=== PATIENT | female | born 1975 | race Caucasian/White ===

== ENCOUNTER 2016-09-16 21:31 | Emergency (ER) | payer SELFPAY ==
[~2016-09-16 21:31] MED LIST: DEPAKOTE PO; TOPAMAX PO; VYVANSE20 MG PO
[2016-09-16 21:34] LABS: INFLUENZA A NEG (NEG); INFLUENZA B NEG (NEG)
== END 2016-09-16 22:13 | disposition home or self-care (01) ==
LOC: SED 21:31
PROVIDERS: Emergency Medicine
DX: J02.9 Acute pharyngitis, unspecified (principal); F17.200 Nicotine dependence, unspecified, uncomplicated; Z88.0 Allergy status to penicillin; Z88.2 Allergy status to sulfonamides; Z79.899 Other long term (current) drug therapy
CPT/HCPCS: 87651; 87804; 99282

== ENCOUNTER 2016-09-23 22:36 | Emergency (ER) | payer SELFPAY ==
--- NOTE | ~2016-09-23 | CR63 ---
[facility] A Service of [facility] & [facility] RADIOLOGY TEXT RESULTS PATIENT: EMIL THOMAS LOCATION: [facility] : 79 UNIT #: [id number] AGE: [address]: SWAPNA GOULD SEX: F ORDER DR: [id number] [facility] [address] [place], [place] [address] [id number] E MR#: [id number] Acc #: [id number] NAME: EMIL THOMAS : 1975 SEX: F STUDY DATE/TIME: 09/23/2016 23:11 UNIT: CFMI ROOM: STUDY DESCRIPTION: CR Chest 2 View Attending Physician: Swapna Gould Aprn Ordering Physician: Ed Boy Turpin M.D. Primary Care Physician: Eduardo Castano M.D. MEDICAL IMAGING REPORT This report is preliminary unless electronic signature is present EXAM PA lateral chest Date: 09/23/2016 HISTORY Shortness of breath and cough for [address] chest 02/27/2016. No prior chest radiograph for comparison at this institution. FINDINGS No acute airspace disease is seen. Calcified granulomatous changes thought to be present in the right infrahilar region. No pleural effusion or pneumothorax or acute osseous abnormalities are identified. IMPRESSION Benign calcified granulomatous changes. No acute chest findings. Dictated by... Jania Cotton M.D. THIS IS AN ELECTRONICALLY VERIFIED REPORT Jania Cotton M.D. at 09/28/2016 8:38 AM CINDIH/vicki TD: 09/24/2016 09:44 JOB #: [id number] MEDICAL IMAGING REPORT Page 1 of 1 COPY
== END 2016-09-23 23:46 | disposition home or self-care (01) ==
LOC: CFTX 22:36
DX: J40 Bronchitis, not specified as acute or chronic (principal); F17.200 Nicotine dependence, unspecified, uncomplicated; Z88.0 Allergy status to penicillin; Z91.040 Latex allergy status
CPT/HCPCS: 71020; 99283

== ENCOUNTER 2016-11-17 01:49 | Emergency (ER) | payer BC ==
--- NOTE | ~2016-11-17 | CT4 ---
[facility] A Service of [facility] RADIOLOGY TEXT RESULTS PATIENT: EMIL THOMAS LOCATION: [facility] : 79 UNIT #: [id number] AGE: [address]: Matt Levy MD SEX: F ORDER DR: [id number] [id number] [place], [place] [address] [id number] E MR#: [id number] Acc #: [id number] NAME: EMIL THOMAS : 1975 SEX: F STUDY DATE/TIME: 11/17/2016 3:12 UNIT: TETE ROOM: STUDY DESCRIPTION: CT Abd and Pelv Wo Cont Attending Physician: Matt Levy Ordering Physician: Hieu Levy M.D. Primary Care Physician: Eduardo Castano M.D. MEDICAL IMAGING REPORT This report is preliminary unless electronic signature is present EXAM CT abdomen and pelvis without contrast HISTORY 41-year-old female pain in left lower abdomen radiating to back since last night. Concern for kidney stones. This CT exam was performed with one or more of the following radiation dose reduction techniques: automatic exposure control, adjustment of mA and/or kV according to patient size, and iterative reconstruction. FINDINGS Axial images performed through the abdomen and pelvis without contrast. Multiplanar reconstructed images reviewed at a workstation. ABDOMEN: Lung bases unremarkable. The liver, spleen, gallbladder, pancreas, kidneys and adrenal glands appear normal. No free air or free fluid. Visualized GI tract to include the appendix is normal. Retroperitoneum unremarkable. PELVIS: The uterus is mildly enlarged with some calcifications may be related to fibroids. Bladder unremarkable. Osseous structures unremarkable. Generalized obesity. IMPRESSION 1. No acute intraabdominal intrapelvic pathology. In particular no evidence of renal stone or obstruction. 2. Generalized obesity. Dictated by... [facility] A Service of [facility] RADIOLOGY TEXT RESULTS PATIENT: EMIL THOMAS LOCATION: [facility] : 79 UNIT #: [id number] AGE: [address]: Matt Levy MD SEX: F ORDER DR: Amrita Lynn M.D. THIS IS AN ELECTRONICALLY VERIFIED REPORT Amrita Lynn M.D. at 11/17/2016 10:32 PM LIZ/roger TD: 11/17/2016 04:19 JOB #: [id number] MEDICAL IMAGING REPORT Page 1 of 1 COPY
[2016-11-17 03:30] LABS: URINE SOURCE CLEAN CATCH
[2016-11-17 03:35] LABS: URINE APPEARANCE CLEAR; URINE BILIRUBIN NEG (NEG); URINE BLOOD NEG (NEG); URINE COLOR YELLOW; URINE GLUCOSE NEG (NEG); URINE KETONE NEG (NEG); URINE LEUKOCYTE ESTERASE NEG (NEG); URINE NITRATE NEG (NEG); URINE PH 6.5 (5-8); URINE PROTEIN NEG (NEG); URINE SPECIFIC GRAVITY 1.019 (1.003-1.035)
[2016-11-17 03:45] LABS: CULTURE INDICATED? NO
== END 2016-11-17 04:20 | disposition home or self-care (01) ==
LOC: CED 01:49
PROVIDERS: Emergency Medicine
DX: R10.2 Pelvic and perineal pain (principal); F17.200 Nicotine dependence, unspecified, uncomplicated; F31.9 Bipolar disorder, unspecified; Z98.51 Tubal ligation status; Z79.899 Other long term (current) drug therapy; Z88.0 Allergy status to penicillin; Z88.2 Allergy status to sulfonamides; Z91.040 Latex allergy status
CPT/HCPCS: 74176; 81003; 84703; 99284

== ENCOUNTER 2016-11-30 05:39 | Emergency (ER) | payer BC ==
--- NOTE | ~2016-11-30 | CT4 ---
[facility] A Service of [facility] & [facility] RADIOLOGY TEXT RESULTS PATIENT: EMIL THOMAS LOCATION: [facility] : 79 UNIT #: [id number] AGE: [address]: Valerie Holland SEX: F ORDER DR: [id number] [facility] [address] [place], [place] [address] [id number] E MR#: [id number] Acc #: [id number] NAME: EMIL THOMAS : 1975 SEX: F STUDY DATE/TIME: 11/30/2016 8:44 UNIT: CFTX ROOM: STUDY DESCRIPTION: CT Abd and Pelv Wo Cont Attending Physician: Valerie Holland P.A.-C. Ordering Physician: Valerie Holland P.A.-C. Primary Care Physician: Eduardo Castano M.D. MEDICAL IMAGING REPORT This report is preliminary unless electronic signature is present EXAM CT abdomen and pelvis 11/30/2016 INDICATION Left flank pain for 1 day. TECHNIQUE Axial noncontrast images were obtained through the abdomen and pelvis. Multiplanar reformats were obtained. This CT exam was performed with one or more of the following radiation dose reduction techniques: automatic exposure control, adjustment of mA and/or kV according to patient size, and iterative reconstruction. COMPARISON Comparison made with 11/17/2016. FINDINGS ABDOMEN: Lung bases are clear. The gallbladder is unremarkable. No renal or ureteral stones are seen and there is no hydronephrosis. There is fatty infiltration of the liver. The unenhanced solid organs are otherwise normal. There is fat stranding around the mid descending colon which is probably a mild degree of focal diverticulitis. No abscess identified. The remainder of the GI tract is normal. No adenopathy is seen. PELVIS: The appendix is normal. The remainder of the unopacified GI tract is normal as well. There are no lower ureteral stones. Urinary bladder is normal. Bilateral Essure devices are present in the fallopian tubes. Uterus is enlarged and lobular in appearance which is presumably the result of leiomyomata. IMPRESSION 1. No renal or ureteral stones. No hydronephrosis. STS. [facility] A Service of [facility] & [facility] RADIOLOGY TEXT RESULTS PATIENT: EMIL THOMAS LOCATION: [facility] : 79 UNIT #: [id number] AGE: [address]: Valerie Holland SEX: F ORDER DR: 2. Fat stranding around the mid descending colon which is probably a mild degree of focal uncomplicated diverticulitis. No abscess is seen. The remainder of the GI tract, including the appendix, is normal. 3. Fatty liver. 4. Fibroid uterus. Dictated by... Teodoro Deshpande Jr., M.D. THIS IS AN ELECTRONICALLY VERIFIED REPORT Teodoro Deshpande Jr., M.D. at 11/30/2016 4:24 PM ISA/carlene TD: 11/30/2016 11:06 JOB #: [id number] MEDICAL IMAGING REPORT Page 1 of 1 COPY
[2016-11-30 08:16] LABS: BASOPHIL# 0.1 X10e3 (0-0.3); BASOPHIL% 0.6 % (0-2.5); DIFF IND NO; EOSINOPHIL# 0.2 X10e3 (0-0.7); EOSINOPHIL% 2.4 % (0.0-7.0); HEMATOCRIT 41.6 % (35.0-45.0); HEMOGLOBIN 13.6 gm/dL (12.0-16.0); LYMPHOCYTE# 2.2 X10e3 (1.0-3.5); LYMPHOCYTE% 28.1 % (17.0-45.0); MEAN CELL VOLUME 85.1 FL (83-96); MEAN CORPUSCULAR HEMOGLOBIN 27.9 PG (28-34); MEAN CORPUSCULAR HGB CONC 32.8 g/dL (30-36); MONOCYTE# 0.5 X10e3 (0-1.0); MONOCYTE% 6.6 % (3.0-12.0); NEUTROPHIL# 4.8 X10e3 (1.5-7.1); NEUTROPHIL% 62.3 % (40-75); PLATELET COUNT 257 X10e3 (140-420); RED BLOOD COUNT 4.89 X10e (3.90-5.30); RED CELL DISTRIBUTION WIDTH 14.3 % (11.0-15.5); WHITE BLOOD COUNT 7.8 X10e3 (4.0-10.5)
[2016-11-30 08:19] LABS: URINE SOURCE CLEAN CATCH
[2016-11-30 08:25] LABS: URINE APPEARANCE CLEAR; URINE BILIRUBIN NEG (NEG); URINE BLOOD NEG (NEG); URINE COLOR YELLOW; URINE GLUCOSE NEG (NEG); URINE KETONE NEG (NEG); URINE LEUKOCYTE ESTERASE NEG (NEG); URINE NITRATE NEG (NEG); URINE PH 7.5 (5-8); URINE PROTEIN NEG (NEG); URINE SPECIFIC GRAVITY 1.012 (1.003-1.035)
[2016-11-30 08:29] LABS: CULTURE INDICATED? NO
[2016-11-30 08:44] LABS: CALCIUM SERUM 9.4 mg/dL (8.4-10.2); CREATININE SERUM 0.5 mg/dL (0.6-1.4); GLOM FILT RATE Estimated 121.9 mL/min (>60); POTASSIUM 4.2 mmol/L (3.5-5.1)
== END 2016-11-30 10:08 | disposition home or self-care (01) ==
LOC: CED 05:39 → CFTX 05:39
PROVIDERS: Physician Assistant
DX: K57.32 Diverticulitis of large intestine without perforation or abscess without bleeding (principal); F31.9 Bipolar disorder, unspecified; K21.9 Gastro-esophageal reflux disease without esophagitis; Z88.0 Allergy status to penicillin; Z88.2 Allergy status to sulfonamides; Z91.040 Latex allergy status; Z79.899 Other long term (current) drug therapy
CPT/HCPCS: 36415; 74176; 80048; 81003; 84703; 85025; 96374; 99284; J1885